=== PATIENT | female | born 1970 | race Caucasian/White ===

== ENCOUNTER → 2016-04-18 | Day surgery (SDC) | payer BC ==
[~2016-04-18] MED LIST: ANEXSIA 7.5/3251 TA1 PO; BENADRYL25 MG PO; DAILY VALUE1 EACH PO; DICYCLOMINE HCL20 MG PO; FLONASE ALLERG9.9 ML; HYDROCODON-ACE1 EAC1 PO; IBUPROFEN100 MG PO; IBUPROFEN200 M1 PO; MULTI-DAY1 TAB PO; PRILOSEC PO; PRILOSEC20 MG PO; TYLENOL SINUS1 EAC1 PO; ZANAFLEX2 M1 PO; ZANTAC150 MG PO; ZOFRANODT PO; ZYRTEC PO; ZYRTEC10 M2 PO
--- NOTE | ~2016-04-18 | OR ---
Unit #: [id number] #: [id number] Patient: ALLI NAGEL [id number] [address] [id number] [id number] MR#: [id number] NAME: ALLI NAGEL ROOM: Date of Procedure: 04/18/2016 Admission Date: 04/18/2016 Surgeon: Gildardo Garcia M.D. : 1970 Attending Physician: Gildardo Garcia M.D. Primary Care Physician: Christal Basilio M.D. OPERATIVE REPORT SERVICES PROVIDED 1. Therapeutic lumbar epidural steroid injection. 2. Fluoroscopy of the lumbosacral spine. 3. IV sedation to facilitate the above. PREOPERATIVE DIAGNOSES 1. Degenerative disk disease, L5-S1 with lumbar radiculopathy. 2. Gastroesophageal reflux disease and goiter. POSTOPERATIVE DIAGNOSES 1. Degenerative disk disease, L5-S1 with lumbar radiculopathy. 2. Gastroesophageal reflux disease and goiter. PROCEDURE PERFORMED Lumbar epidural steroid injection using fluoroscopy. FOLLOW-UP/REVIEW OF SYSTEMS/PHYSICAL EXAM Ms. Nagel is here for lumbar epidural steroid injection. She has had significant pain relief with lumbar epidural interventions and has had a recurrence of radiculopathy and requested pain intervention. She has no major contraindications to the procedure. This was performed as follows with her consent. INDICATIONS/COMMENTS AND CONSENTS/STATEMENT OF MEDICAL NECESSITY The patient's current medications, allergies and vital signs are documented in the nursing assessment. The risks and benefits of the intervention were discussed with the patient in detail including but not limited to infection, bleeding, meningitis, steroid induced side-effects, nerve damage, paralysis, spinal headaches, neuritis, persistent or worsening pain. The patient wishes to proceed. A separate pain assessment is also in the chart. I have reviewed all of this and have reviewed this with the patient. A current History and Physical is also attached. DESCRIPTION OF PROCEDURE 1. Monitoring and positioning: After appropriate discussions it was decided to perform the procedure under local anesthesia with supplemental intravenous sedation. Vital signs were monitored in pre, intra and post-procedure phase. Monitoring included EKG, non-invasive BP, pulse oximetry, and temperature. These are documented and were stable. Appropriate supports and restraints were used. 2. Sedation: A total of 2 mg of Versed and 50 mcg of fentanyl was administered. Unit #: [id number] #: [id number] Patient: ALLI NAGEL 3. Lumbar epidural injection/fluoroscopy: The patient was placed in the sitting position. Positional supports were used. Fluoroscopy of the lumbar spine was performed. Sterile prep and drape with carried out with ChloraPrep. Local anesthesia was with infiltrated with 3 mL of preservative-free 1% Lidocaine. Once anesthesia was established, a 22-gauge Tuohy epidural needle was inserted at the L5-S1 level epidurally, using an interlaminar approach, loss of resistance to saline technique, and with fluoroscopic guidance. Needle placement tested negative for subarachnoid and intravascular placement. An intra-operative epidurogram was now performed. Intra-operative epidurogram: 1 mL of Isovue-M300 was injected through the epidural needle under continuous fluoroscopy. The dye was seen to spread to L5 in the cephalad direction, and to S1 in the caudal direction. The spread of the dye was uniform. 1 mL of preservative-free normal saline was used to irrigate the dye off the epidural space. There was no intravascular or intrathecal spread of contrast. A lumbar epidural steroid injection was now performed using a total of 3 mL of solution containing 0.2% bupivacaine in 2 mL followed by 80 mg of Depo-Medrol in 2 mL. Fluoroscopic imaging confirmed spread of medication. The needle was then removed intact. The skin was washed off. Prep solution and dressings were applied at the injection site. The patient tolerated the procedure well. The patient was then observed in the recovery area for 30 minutes. RESULTS The patient had a consistent block with the dose of local anesthetic used. Pain relief was satisfactory. There were no complications or side effects. DISCHARGE CONDITION 1. Patient was discharged in satisfactory condition accompanied by a family member. 2. Post-procedure instructions were given. PLAN The patient will return to the clinic in 2 months for re-assessment and office visit. I thank the patient's referring physician for the opportunity to participate in the care of this patient. Please do not hesitate to call for any questions regarding this patient's pain management. Dictated by... Carolyn Olea/keith TD: 04/19/2016 02:10 JOB #: [id number] Unit #: [id number] #: [id number] Patient: ALLI NAGEL OPERATIVE REPORT X Gildardo Garcia MD PROCEDURE OPERATIVE NOTE
== END | disposition home or self-care (01) ==
LOC: CCSC 08:58
DX: M51.17 Intervertebral disc disorders with radiculopathy, lumbosacral region (principal); K21.9 Gastro-esophageal reflux disease without esophagitis; E04.2 Nontoxic multinodular goiter
CPT/HCPCS: J1040; J2250; J3010